=== PATIENT | female | born 1935 | race Caucasian/White ===

== ENCOUNTER → 2016-10-05 | Outpatient (CLI) | payer MEDICARE, BC ==
[~2016-10-05] MED LIST: ALBUS PO; AMIO200 PO; CIME400T PO; FISH100020 PO; LEVO125T3 PO; LORA-392 PO; TAB-TAB PO; TEMA15 PO; TIOT18I INH; TOPR50TA PO; TRAD5TAB PO; TYLE3 PO; VITA50LO SQ; WARF4 PO; ZOFR4TAB3 SL
[2016-10-05 15:32] LABS: INTERNATIONAL NORMALIZED RATIO 3.2 RATIO; PROTHROMBIN TIME - PATIENT 37.5 SEC (9.8-11.6)
== END ==
LOC: CLAB 14:34
PROVIDERS: ATTEND Internal Medicine Interventional Cardiology
DX: Z51.81 Encounter for therapeutic drug level monitoring (principal); Z79.01 Long term (current) use of anticoagulants
CPT/HCPCS: 36415; 85610